=== PATIENT | male | born 1980 | race Caucasian/White ===

== ENCOUNTER → 2017-10-30 | Emergency (ER) | payer OTHER ==
[~2017-10-30] MED LIST: Acetaminophen 500 MG Tab ONE
[2017-10-30 17:14] VITALS: BP 160/95
[2017-10-30] MEDS: Diphtheria,Pertussis(Acell),Tetanus Vaccine 0.5 ML SDV inactive IM ONE (17:21)
--- NOTE | 2017-10-30 20:45 | ER ---
HPI: A 36-year-old male here with complaints of a fishhook embedded into the left index finger. The patient states this happened while he was fishing this afternoon. He denies any other injuries. PAST MEDICAL HISTORY: Includes history of heart murmur and aortic stenosis that is close to needing surgery. OBJECTIVE: GENERAL APPEARANCE: The patient is awake and alert. No obvious distress. Examining the left index finger reveals a single fish hook is embedded into the distal portion of the left index finger just distal to the DIP joint. There is no active bleeding or drainage at this time. DIAGNOSIS: [place] to left index finger. TREATMENT PLAN: The site was swabbed with alcohol after which 1% lidocaine was injected locally injecting about 1 mL. After this, using a string Yank method, I removed the fishhook on the first attempt without any difficulty. POST CARE INSTRUCTION: The patient held a gauze dressing to the site for a couple minutes after which an antibiotic ointment and a Band-Aid were applied by nursing staff. He was given a tetanus shot today. He is to monitor for infection. I will give the patient a single dose of amoxicillin 2 g p.o. because of his cardiac conditions and followup is p.r.n. ONDINA/MODL /[id number]
== END ==
LOC: LB.ED 14:44
DX: S60.451A Superficial foreign body of left index finger, initial encounter (principal); W45.8XXA Other foreign body or object entering through skin, initial encounter; Z23 Encounter for immunization
CPT/HCPCS: 90471; 90715; 99283-25